=== PATIENT | male | born 1965 | race Caucasian/White ===

== ENCOUNTER 2022-09-13 14:02 | Emergency (ER) | payer OTHER, SELFPAY ==
[2022-09-13 15:26] VITALS: BP 142/84; PULSE 83; RESP 16; TEMP 36.5; O2SAT 99
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
== END 2022-09-13 15:58 | disposition home or self-care (01) ==
PROVIDERS: Emergency Provider Nurse Practitioner Adult Health
DX: M54.2 Cervicalgia (principal); M62.838 Other muscle spasm
CPT/HCPCS: 99213; G0463